=== PATIENT | male | born 1995 | race American Indian/Alaskan Native ===

== ENCOUNTER 2017-06-20 11:15 | Emergency (ER) | payer BC ==
[2017-06-20 11:31] VITALS: BP 107/67
[2017-06-20] MEDS ORDERED: MOTRIN PO ONE (12:48)
[2017-06-20] MEDS ORDERED: TRIPLE ANTIBIOTIC TP ONE (12:48)
[2017-06-20] MEDS ORDERED: BOOSTRIX IM ONE (12:48)
--- NOTE | 2017-06-20 13:51 | XRay Report ---
Right wrist: Laceration. There is soft tissue gas on the volar aspect of the wrist. There is no foreign body. No underlying bone or joint abnormality. Impression: Wrist laceration.
--- NOTE | 2017-06-20 14:18 | Emergency Department Report ---
Entered by VIKRAM THOMAS, acting as scribe for TEMO VILLEGAS PA. 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 Patient states he was changing a light bulb at work when the light bulb shattered and cut him. Patient rates pain a 5/10 in severity, and describes pain as burning. Patient denies fever, chills, chest pain, SOB, nausea, vomiting, numbness, or tingling. No pulsating blood present in ED room. Patient denies other injuries. NKDA. -: hour(s) (2-3 [employer]ORER/GRADE CHECK), This morning Location: other (right wrist) Extremity Location: Right: Wrist (on the side) Place: work Patient Tetanus UTD: No (unsure ) Context: accidental, sharp object use Associated Symptoms: pain, suspect foreign body present. denies: loss of feeling/numbness, unable to move injured part, weakness followed by dizziness, nausea/vomiting, fever Treatments Prior to Arrival: bandage - Related Data Previous Rx's Medication Instructions Recorded Last Taken Type Cephalexin [Keflex] 500 mg PO Q12HR #14 cap 06/20/17 Unknown Rx Naproxen [Naprosyn TAB] 375 mg PO BID PRN #25 tablet 06/20/17 Unknown Rx Allergies Allergy/AdvReac Type Severity Reaction Status Date / Time No Known Allergies Allergy Unverified 06/20/17 11:26 ED Review of Systems Comment: All other systems reviewed and negative Constitutional: denies: chills, fever, weakness Respiratory: denies: cough, shortness of breath, wheezing Cardiovascular: denies: chest pain, palpitations Gastrointestinal: denies: abdominal pain, nausea, vomiting, diarrhea Musculoskeletal: denies: back pain, joint swelling, arthralgia Skin: other (laceration to right wrist). denies: rash, lesions Neurological: denies: headache, weakness, paresthesias ED Past Medical Hx - Past Medical History Previous Medical History?: No - Surgical History Past Surgical History?: No - Social History Smoking Status: Current Every Day Smoker Substance Use Type: Alcohol - Medications Home Medications: Home Medications Medication Instructions Recorded Confirmed Last Taken Type Cephalexin [Keflex] 500 mg PO Q12HR #14 cap 06/20/17 Unknown Rx Naproxen [Naprosyn TAB] 375 mg PO BID PRN #25 tablet 06/20/17 Unknown Rx ED Physical Exam - General Limitations: No Limitations General appearance: alert, in no apparent distress - Head Head exam: Present: atraumatic, normocephalic - Neck Neck exam: Present: normal inspection, full ROM. Absent: tenderness, meningismus - Respiratory Respiratory exam: Present: normal lung sounds bilaterally. Absent: respiratory distress, wheezes, rales, rhonchi, stridor - Cardiovascular Cardiovascular Exam: Present: regular rate, normal rhythm, normal heart sounds. Absent: systolic murmur, diastolic murmur, rubs, gallop - GI/Abdominal GI/Abdominal exam: Present: soft, normal bowel sounds. Absent: distended, tenderness, guarding, rebound, rigid, diminished bowel sounds - Extremities Exam Extremities exam: Present: normal inspection, full ROM, normal capillary refill. Absent: tenderness, pedal edema, joint swelling - Expanded Upper Extremity Exam Right Forearm Wrist exam: Present: laceration (diagonal 2-3 cm laceration on the ulnar aspect of distal right wrist) Hand Wrist exam: Present: full ROM (wrist flexion and extension intact right wrist) Hand L/R Front: 1 - Positive: laceration (2-3 cm laceration no arterial bleeding noted) Neuro motor exam: Present: wrist extension intact, thumb opposition intact, thumb IP flexion intact, thumb adduction intact, fingers 2-5 abduction intact Neurosensory exam: Present: 2-point discrimination, radial nerve intact, ulnar nerve intact, median nerve intact Vascular: Present: normal capillary refill (blurry refill less than one second all fingers), radial pulse (distal radial brachial and ulnar pulses intact) - Back Exam Back exam: Present: normal inspection, full ROM. Absent: tenderness, paraspinal tenderness, vertebral tenderness - Neurological Exam Neurological exam: Present: alert, oriented X3 - Psychiatric Psychiatric exam: Present: normal affect, normal mood - Expanded Skin Exam Expanded Type of lesion: Present: laceration (no pulsating blood present, DIP, PIP, and MCP intact, and Flexion and extension intact), foreign body (piece of glass) ED Course Vital Signs 06/20/17 06/20/17 11:27 13:00 Temperature 98.2 F Pulse Rate 107 H Respiratory 17 18 Rate Blood Pressure 107/67 O2 Sat by Pulse 97 Oximetry - Laceration /Wound Repair Right Distal Wrist Wound Location: upper extremity (dital right wrist) Wound Length (cm): 3 Wound's Depth, Shape: superficial, linear Irrigated w/ Saline (ccs): 1,000 Anesthesia: Lidocaine w/ Epi Volume Anesthetic (ccs): 4 Wound Debrided: minimal Wound Repaired With: sutures Suture Size/Type: 3:0, proline Number of Sutures: 6 Layer Closure?: Yes Deep Layer Suture Size/Type: 3:0, gut Number Deep Layer Sutures: 2 Sterile Dressing Applied?: Yes (Kerlix gauze with triple antibiotic ointment.) Progress: Area infiltrated with lidocaine with epinephrine good local anesthesia achieved. 3 deep sutures placed, 6 external sutures placed. Good wound closure achieved. Procedure tolerated well minimal bleeding. ED Medical Decision Making - Medical Decision Making A/P: right Wrist Laceration 1-sutures to be removed in 7-10 days. Patient provided with a wrist splint to mitigate any suture loosening or breakage. 2-tetanus updated 3-Motrin when necessary, triple antibiotic ointment, keflex 7 days 4- pt advised to return to the ED for any fevers chills pus drainage erythema at site of laceration ED Disposition Clinical Impression: Laceration of right wrist Qualifiers: Encounter type: initial encounter Qualified Code(s): S61.511A - Laceration without foreign body of right wrist, initial encounter Disposition: TO HOME OR SELFCARE Is pt being admited?: No Does the pt Need Aspirin: No Condition: Stable Instructions: Acute Wound Care (ED), Suture Care (ED), Laceration (ED) Additional Instructions: Sutures need to be removed in 7-10 days Prescriptions: Cephalexin [Keflex] 500 mg PO Q12HR #14 cap Naproxen [Naprosyn TAB] 375 mg PO BID PRN #25 tablet PRN Reason: Pain Referrals: [facility] [Outside] - 3-5 Days [facility] [Provider Group] - 3-5 Days Forms: Work/School Release Form(ED) Time of Disposition: 14:15 This documentation as recorded by the MARTHA rios PEARL,accurately reflects the service I personally performed and the decisions made by ,TEMO VILLEGAS PA.
== END 2017-06-20 15:45 | disposition home or self-care (01) ==
LOC: ED 11:15
DX: S61.511A Laceration without foreign body of right wrist, initial encounter (principal); F17.200 Nicotine dependence, unspecified, uncomplicated; W26.8XXA Contact with other sharp object(s), not elsewhere classified, initial encounter; Y93.89 Activity, other specified; Y99.9 Unspecified external cause status; Y92.89 Other specified places as the place of occurrence of the external cause
CPT/HCPCS: 90471; 90715; A6250

== ENCOUNTER 2018-01-19 19:20 | Emergency (ER) | payer BC ==
[2018-01-20 03:49] VITALS: BP 138/80
--- NOTE | 2018-01-20 03:58 | Emergency Department Report ---
Abscess Boil HPI - HPI Chief Complaint: Skin/Abscess/Foreign Body Stated Complaint: FB IN HAND Time Seen by Provider: 01/20/18 02:48 Duration: >1 Week Location: Upper Extremity Severity: Mild History: No Fever, No Pain, No Purulent Drainage, No Numbness, No Foreign Body, No Previous History, No Insect Bite HPI: Patient is a 23-year-old male states he was seen in June of last year for an injury sustained to the right hand. He states he was changing some bulb when he got cut. Patient states that he was treated and Patient states he is seeing some scar develop since then. Patient states that his scar got bit bigger and almost looks like abscess on his wrist. Patient states that there is no pain, redness or bleeding to the site. He denies fevers/chills/ nausea vomiting or any problem Home Medications: Previous Rx's Medication Instructions Recorded Last Taken Type Cephalexin [Keflex] 500 mg PO Q12HR #10 cap 01/20/18 Unknown Rx Naproxen [Naprosyn TAB] 375 mg PO BID PRN #25 tablet 01/20/18 Unknown Rx Allergies/Adverse Reactions: Allergies Allergy/AdvReac Type Severity Reaction Status Date / Time No Known Allergies Allergy Unverified 06/20/17 11:26 ED Review of Systems ROS: Stated complaint: FB IN HAND Other details as noted in HPI Constitutional: denies: chills, fever Eyes: denies: eye pain, eye discharge, vision change ENT: denies: ear pain, throat pain Respiratory: denies: cough, shortness of breath, wheezing Cardiovascular: denies: chest pain, palpitations Endocrine: no symptoms reported Gastrointestinal: denies: abdominal pain, nausea, diarrhea Genitourinary: denies: urgency, dysuria Musculoskeletal: denies: back pain, joint swelling, arthralgia Skin: denies: rash, lesions Neurological: denies: headache, weakness, paresthesias Psychiatric: denies: anxiety, depression Hematological/Lymphatic: denies: easy bleeding, easy bruising ED Past Medical Hx - Past Medical History Previous Medical History?: No - Surgical History Past Surgical History?: No - Social History Smoking Status: Current Every Day Smoker Substance Use Type: Alcohol - Medications Home Medications: Home Medications Medication Instructions Recorded Confirmed Last Taken Type Cephalexin [Keflex] 500 mg PO Q12HR #10 cap 01/20/18 Unknown Rx Naproxen [Naprosyn TAB] 375 mg PO BID PRN #25 tablet 01/20/18 Unknown Rx ED Abscess Boil Physical Exam - Exam General: Vital signs noted. No distress. Alert and acting appropriately. Front/Back of Body, Lg (Color): 1 - small nontender, 1 cm protusion consistence with scar tissue formation from old wound Size: 1 cm Exam: Yes Normal Neurologic Exam, Yes Normal Circulation, No Tenderness, No Fluctuance, No Surrounding Cellulites/Erythema, No Lymphangitis, No Crepitation , No Heart Murmur I & D Note - I & D Note I & D Note: None performed as this was not an abscess ED Course Vital Signs 01/19/18 01/20/18 22:40 03:47 Temperature 97.8 F 97.7 F Pulse Rate 61 69 Respiratory 18 16 Rate Blood Pressure 135/84 Blood Pressure 138/80 [Right] O2 Sat by Pulse 100 99 Oximetry Critical care attestation.: If time is entered above; I have spent that time in minutes in the direct care of this critically ill patient, excluding procedure time. ED Medical Decision Making - Medical Decision Making 23-year-old male presents with scar tissue/contusion of right wrist ED course: I discussed the patient to apply heat therapy 3 times a day I discussed to take Motrin if needed for pain I discussed the patient that scar tissue present and usually forms after an injury. Vital signs are normal patient is in no acute distress at discussed the patient to follow up with primary care physician. Patient had no neurological symptoms, neurovascular symptoms, vital signs are normal ED Disposition Clinical Impression: Lipoma of hand Contusion Qualifiers: Encounter type: subsequent encounter Contusion area: hand Laterality: right Qualified Code(s): S60.221D - Contusion of right hand, subsequent encounter Disposition: - TO HOME OR SELFCARE Is pt being admited?: No Does the pt Need Aspirin: No Condition: Stable Instructions: Acute Wound Care (ED), Contusion in Adults (ED) Additional Instructions: Make sure to follow up with the primary care physician as discussed. Take all your medications as you've been prescribed. If you have any worsening symptoms or develop new symptoms please return to ED immediately. Prescriptions: Cephalexin [Keflex] 500 mg PO Q12HR #10 cap Naproxen [Naprosyn TAB] 375 mg PO BID PRN #25 tablet PRN Reason: Pain Referrals: RACH GONZALEZ MD [Primary Care Provider] - 3-5 Days Forms: Work/School Release Form(ED) Time of Disposition: 03:58
== END 2018-01-20 04:00 | disposition home or self-care (01) ==
LOC: ED 19:20
DX: S60.221D Contusion of right hand, subsequent encounter (principal); D17.39 Benign lipomatous neoplasm of skin and subcutaneous tissue of other sites; F17.200 Nicotine dependence, unspecified, uncomplicated; W45.8XXD Other foreign body or object entering through skin, subsequent encounter
CPT/HCPCS: 99282